=== PATIENT | male | born 1965 | race Caucasian/White ===

== ENCOUNTER 2018-06-02 00:57 | Inpatient (IN) | payer OTHER ==
[2018-06-02] MEDS ORDERED: NACL 0.9% 3 ML SYG IV (09:00)
[2018-06-02 10:10] LABS: ADD MAN DIFF? NO
[2018-06-02 10:14] LABS: BASOPHILS % 0.1 % (0.0-2.0); HEMATOCRIT 43.1 % (42.0-52.0); HEMOGLOBIN 13.8 g/dl (14.0-18.0); LYMPHOCYTES # 0.9 10^3/ul (0.8-2.9); LYMPHOCYTES % 9.2 % (15.0-51.0); MEAN CORPUSCULAR HEMOGLOBIN 27.7 pg (29.0-33.0); MEAN CORPUSCULAR VOLUME 86.5 fl (82.0-101.0); MEAN PLATELET VOLUME 11.2 fl (7.4-10.4); MONOCYTE # 0.4 10^3/ul (0.3-0.9); MONOCYTES % 3.6 % (0.0-11.0); NEUTROPHIL # 8.8 10^3/ul (1.6-7.5); NEUTROPHILS % 86.7 % (39.0-77.0); PLATELET COUNT 417 10^3/UL (140-415); RED BLOOD COUNT 4.98 10^6/ul (4.70-6.10); RED CELL DISTRIBUTION WIDTH 13.7 % (11.5-14.5)
[2018-06-02 10:14] LABS: WHITE BLOOD COUNT 10.2 10^3/ul (4.8-10.8)
[2018-06-02 10:24] LABS: HEMOGLOBIN A1C 5.3 % (0-5.9)
[2018-06-02 10:37] LABS: ALANINE AMINOTRANSFERASE 46 IU/L (13-69); ALBUMIN 4.2 g/dl (3.3-4.9); ALKALINE PHOSPHATASE 93 IU/L (42-121); ANION GAP 10 (5-13); ASPARTATE AMINO TRANSFERASE 36 IU/L (15-46); BILIRUBIN,INDIRECT 0.4 mg/dl (0-1.1); BILIRUBIN,TOTAL 0.4 mg/dl (0.2-1.3); BLOOD UREA NITROGEN 21 mg/dl (7-20); CALCIUM 9.7 mg/dl (8.4-10.2); CARBON DIOXIDE 25 mmol/L (21-31); CHLORIDE 101 mmol/L (97-110); CHOL/HDL RATIO 5.4 RATIO; CHOLESTEROL 148 mg/dl (100-200); CREATININE 0.58 mg/dl (0.61-1.24); Estimated GFR > 60 mL/min (>60); GLUCOSE 165 mg/dl (70-220); HDL CHOLESTEROL 27 mg/dl (28-71); LDL CHOLESTEROL,CALCULATED 102 mg/dl; MAGNESIUM 1.9 mg/dl (1.7-2.5); POTASSIUM 4.6 mmol/L (3.5-5.1); SODIUM 136 mmol/L (135-144); TRIGLYCERIDES 96 mg/dl (0-149)
[2018-06-02] MEDS ORDERED: DOCUSATE SODIUM 100 MG CAP PO (15:30)
[2018-06-02] MEDS: FAMOTIDINE 20 MG TAB PO (15:58)
[2018-06-02] MEDS ORDERED: DEXAMETHASONE 10 MG/ML 1 ML INJ IV (16:00)
[2018-06-02] MEDS: DEXAMETHASONE 4 MG/ML 1 ML INJ IV (16:01)
[2018-06-02] MEDS: ACETAMINOPHEN 325 MG TAB PO (20:29)
[2018-06-02] MEDS ORDERED: NITROGLYCERIN (SL) 0.4 MG TAB SL (21:00)
[2018-06-02 21:37] LABS: CREATINE KINASE 76 IU/L (23-200)
[2018-06-02 21:51] LABS: CK INDEX 2.5; CK-MB 1.93 ng/ml (0.0-2.4); TROPONIN-I < 0.012 ng/ml (0.000-0.120)
[2018-06-02] MEDS: DEXAMETHASONE 1 MG TAB PO (22:23)
[2018-06-03] MEDS: DEXAMETHASONE 1 MG TAB PO ×5 (05:39→23:13)
[2018-06-03 06:20] LABS: ADD MAN DIFF? NO
[2018-06-03 06:24] LABS: BASOPHILS % 0.1 % (0.0-2.0); HEMATOCRIT 40.4 % (42.0-52.0); HEMOGLOBIN 12.9 g/dl (14.0-18.0); LYMPHOCYTES # 1.4 10^3/ul (0.8-2.9); LYMPHOCYTES % 8.2 % (15.0-51.0); MEAN CORPUSCULAR HEMOGLOBIN 27.9 pg (29.0-33.0); MEAN CORPUSCULAR HGB CONC 31.9 g/dl (32.0-37.0); MEAN CORPUSCULAR VOLUME 87.3 fl (82.0-101.0); MEAN PLATELET VOLUME 11.1 fl (7.4-10.4); MONOCYTE # 1.3 10^3/ul (0.3-0.9); MONOCYTES % 7.4 % (0.0-11.0); NEUTROPHIL # 14.2 10^3/ul (1.6-7.5); NEUTROPHILS % 83.7 % (39.0-77.0); PLATELET COUNT 373 10^3/UL (140-415); RED BLOOD COUNT 4.63 10^6/ul (4.70-6.10); RED CELL DISTRIBUTION WIDTH 13.3 % (11.5-14.5)
[2018-06-03 06:40] LABS: HEMOGLOBIN A1C 5.5 % (0-5.9)
[2018-06-03 07:15] LABS: PHOSPHORUS 3.9 mg/dl (2.5-4.9)
[2018-06-03 07:15] LABS: LIPASE 38 U/L (23-300); MAGNESIUM 2.1 mg/dl (1.7-2.5)
[2018-06-03 07:16] LABS: ANION GAP 10 (5-13); BLOOD UREA NITROGEN 19 mg/dl (7-20); CALCIUM 9.7 mg/dl (8.4-10.2); CARBON DIOXIDE 27 mmol/L (21-31); CHLORIDE 97 mmol/L (97-110); CREATININE 0.57 mg/dl (0.61-1.24); Estimated GFR > 60 mL/min (>60); GLUCOSE 129 mg/dl (70-220); POTASSIUM 4.5 mmol/L (3.5-5.1); SODIUM 134 mmol/L (135-144)
[2018-06-03] MEDS: FAMOTIDINE 20 MG TAB PO (08:33)
[2018-06-03] MEDS: LEVETIRACETAM 1000 MG (PMX) 100 ML IVPB (16:51)
[2018-06-03] MEDS: LEVETIRACETAM 500 MG TAB PO (20:48)
[2018-06-03] MEDS: ALBUTEROL/IPRATROPIUM (NEB) 3 ML AMP HHN (23:22)
[2018-06-04] MEDS: DEXAMETHASONE 1 MG TAB PO ×3 (05:35→17:45)
[2018-06-04 05:51] LABS: PHOSPHORUS 3.3 mg/dl (2.5-4.9)
[2018-06-04 05:54] LABS: ANION GAP 6 (5-13); BLOOD UREA NITROGEN 16 mg/dl (7-20); CALCIUM 9.5 mg/dl (8.4-10.2); CARBON DIOXIDE 29 mmol/L (21-31); CHLORIDE 102 mmol/L (97-110); CREATININE 0.59 mg/dl (0.61-1.24); Estimated GFR > 60 mL/min (>60); GLUCOSE 121 mg/dl (70-220); POTASSIUM 4.4 mmol/L (3.5-5.1); SODIUM 137 mmol/L (135-144)
[2018-06-04] MEDS: ALBUTEROL/IPRATROPIUM (NEB) 3 ML AMP HHN ×3 (06:04→19:38)
[2018-06-04] MEDS: ACETAMINOPHEN 325 MG TAB PO ×2 (07:31→22:42)
[2018-06-04] MEDS: LEVETIRACETAM 500 MG TAB PO ×2 (09:21→21:24)
[2018-06-04] MEDS: FAMOTIDINE 20 MG TAB PO (09:21)
[2018-06-04 17:10] LABS: ALPHA FETOPROTEIN 2.12 IU/L (0.00-7.21)
[2018-06-05] MEDS: DEXAMETHASONE 1 MG TAB PO ×4 (00:10→18:12)
[2018-06-05] MEDS: HYDROCODONE/APAP (5/325) TAB PO ×5 (00:16→22:36)
[2018-06-05 07:56] LABS: ADD MAN DIFF? NO
[2018-06-05 08:05] LABS: WHITE BLOOD COUNT 15.6 10^3/ul (4.8-10.8)
[2018-06-05 08:05] LABS: BASOPHILS % 0.2 % (0.0-2.0); EOSINOPHILS % 0.2 % (0.0-7.0); HEMATOCRIT 40.2 % (42.0-52.0); HEMOGLOBIN 12.8 g/dl (14.0-18.0); LYMPHOCYTES # 1.7 10^3/ul (0.8-2.9); LYMPHOCYTES % 11.1 % (15.0-51.0); MEAN CORPUSCULAR HEMOGLOBIN 28.2 pg (29.0-33.0); MEAN CORPUSCULAR HGB CONC 31.8 g/dl (32.0-37.0); MEAN CORPUSCULAR VOLUME 88.5 fl (82.0-101.0); MEAN PLATELET VOLUME 11.2 fl (7.4-10.4); MONOCYTE # 1.2 10^3/ul (0.3-0.9); MONOCYTES % 7.7 % (0.0-11.0); NEUTROPHIL # 12.6 10^3/ul (1.6-7.5); NEUTROPHILS % 80.4 % (39.0-77.0); PLATELET COUNT 335 10^3/UL (140-415); RED BLOOD COUNT 4.54 10^6/ul (4.70-6.10); RED CELL DISTRIBUTION WIDTH 13.9 % (11.5-14.5)
[2018-06-05] MEDS: ALBUTEROL/IPRATROPIUM (NEB) 3 ML AMP HHN ×3 (08:10→22:11)
[2018-06-05 08:21] LABS: MAGNESIUM 2.1 mg/dl (1.7-2.5)
[2018-06-05 08:21] LABS: PHOSPHORUS 4.3 mg/dl (2.5-4.9)
[2018-06-05 08:25] LABS: ALANINE AMINOTRANSFERASE 167 IU/L (13-69); ALBUMIN/GLOBULIN RATIO 1.33; ALKALINE PHOSPHATASE 87 IU/L (42-121); ANION GAP 2 (5-13); ASPARTATE AMINO TRANSFERASE 60 IU/L (15-46); BILIRUBIN,INDIRECT 0.4 mg/dl (0-1.1); BILIRUBIN,TOTAL 0.4 mg/dl (0.2-1.3); BLOOD UREA NITROGEN 15 mg/dl (7-20); CALCIUM 9.6 mg/dl (8.4-10.2); CARBON DIOXIDE 31 mmol/L (21-31); CHLORIDE 103 mmol/L (97-110); CREATININE 0.59 mg/dl (0.61-1.24); Estimated GFR > 60 mL/min (>60); GLUCOSE 103 mg/dl (70-220); POTASSIUM 4.6 mmol/L (3.5-5.1); SODIUM 136 mmol/L (135-144)
[2018-06-05] MEDS: FAMOTIDINE 20 MG TAB PO (08:36)
[2018-06-05] MEDS: LEVETIRACETAM 500 MG TAB PO ×2 (08:36→20:30)
[2018-06-05 11:56] LABS: INR 1.03; PROTIME 13.6 Sec (11.9-14.9); PT RATIO 1.1
[2018-06-05 11:57] LABS: PARTIAL THROMBOPLASTIN TIME 29.7 Sec (23.0-35.0)
[2018-06-05 12:08] LABS: CARCINOEMBRYONIC ANTIGEN 10.5 ng/ml (0.0-5.0)
[2018-06-05] MEDS: IOHEXOL 14.3 MG(I)/ML (ADULT) BTL PO (12:29)
[2018-06-05] MEDS: SOD CHLORIDE 0.9% 100 ML (15:00)
[2018-06-05] MEDS: IOHEXOL 300MG/ML 30 ML BTL (15:00)
[2018-06-06] MEDS: DEXAMETHASONE 1 MG TAB PO ×5 (00:46→23:47)
[2018-06-06] MEDS: HYDROCODONE/APAP (10/325) TAB PO ×4 (02:43→23:47)
[2018-06-06] MEDS: ALBUTEROL/IPRATROPIUM (NEB) 3 ML AMP HHN ×4 (02:46→20:04)
[2018-06-06] MEDS: LEVETIRACETAM 500 MG TAB PO ×2 (08:04→20:43)
[2018-06-06] MEDS: FAMOTIDINE 20 MG TAB PO (08:04)
[2018-06-06] MEDS: ONDANSETRON 4 MG INJ IV ×3 (09:07→21:55)
[2018-06-06] MEDS: METHYLPREDNISOLONE 125 MG INJ IV (09:44)
[2018-06-06] MEDS: FUROSEMIDE 20 MG INJ IV (09:45)
[2018-06-06 19:19] LABS: TROPONIN-I < 0.012 ng/ml (0.000-0.120)
[2018-06-06] MEDS: FLUTICASONE 0.05% 16 GM NAS SPRAY NASAL (21:28)
[2018-06-06] MEDS ORDERED: LORAZEPAM 2 MG INJ (22:14)
[2018-06-06] MEDS: LORAZEPAM 2 MG INJ IV (23:01)
[2018-06-07 01:39] LABS: TROPONIN-I < 0.012 ng/ml (0.000-0.120)
[2018-06-07] MEDS: ALBUTEROL/IPRATROPIUM (NEB) 3 ML AMP HHN ×4 (02:46→19:58)
[2018-06-07] MEDS: DEXAMETHASONE 1 MG TAB PO ×3 (05:00→17:35)
[2018-06-07] MEDS: morphine SULFATE/PF (2 MG/2 ML) SYG IV (05:41)
[2018-06-07] MEDS ORDERED: FUROSEMIDE 20 MG INJ IV (06:00)
[2018-06-07 06:38] LABS: ADD MAN DIFF? NO
[2018-06-07 06:40] LABS: ABNORMAL IP MESSAGE 1; HEMATOCRIT 41.1 % (42.0-52.0); HEMOGLOBIN 13.3 g/dl (14.0-18.0); LYMPHOCYTES # 1.3 10^3/ul (0.8-2.9); LYMPHOCYTES % 6.1 % (15.0-51.0); MEAN CORPUSCULAR HEMOGLOBIN 28.6 pg (29.0-33.0); MEAN CORPUSCULAR HGB CONC 32.4 g/dl (32.0-37.0); MEAN CORPUSCULAR VOLUME 88.4 fl (82.0-101.0); MEAN PLATELET VOLUME 11.1 fl (7.4-10.4); MONOCYTE # 1.8 10^3/ul (0.3-0.9); MONOCYTES % 8.7 % (0.0-11.0); NEUTROPHIL # 17.5 10^3/ul (1.6-7.5); NEUTROPHILS % 84.6 % (39.0-77.0); PLATELET COUNT 423 10^3/UL (140-415); POSITIVE DIFF @See below; RED BLOOD COUNT 4.65 10^6/ul (4.70-6.10)
[2018-06-07 06:40] LABS: WHITE BLOOD COUNT 20.7 10^3/ul (4.8-10.8)
[2018-06-07 07:01] LABS: INR 1.04; PROTIME 13.7 Sec (11.9-14.9); PT RATIO 1.1
[2018-06-07 07:02] LABS: PARTIAL THROMBOPLASTIN TIME 30.9 Sec (23.0-35.0)
[2018-06-07 07:05] LABS: ANION GAP 12 (5-13); BLOOD UREA NITROGEN 25 mg/dl (7-20); CARBON DIOXIDE 27 mmol/L (21-31); CHLORIDE 95 mmol/L (97-110); CREATININE 0.73 mg/dl (0.61-1.24); Estimated GFR > 60 mL/min (>60); GLUCOSE 142 mg/dl (70-220); SODIUM 134 mmol/L (135-144)
[2018-06-07 07:07] LABS: MAGNESIUM 2.2 mg/dl (1.7-2.5)
[2018-06-07 07:07] LABS: PHOSPHORUS 5.7 mg/dl (2.5-4.9)
[2018-06-07] MEDS ORDERED: LIDOCAINE 1% (MDV) 20 ML INJ (08:32)
[2018-06-07] MEDS ORDERED: FENTAnyl 50 MCG/ML VIAL ×3 (08:39→10:17)
[2018-06-07] MEDS ORDERED: MIDAZOLAM 1 MG/ML 2 ML INJ (08:39)
[2018-06-07] MEDS: FAMOTIDINE 20 MG TAB PO (09:00)
[2018-06-07] MEDS: LEVETIRACETAM 500 MG TAB PO ×2 (09:00→20:03)
[2018-06-07] MEDS ORDERED: LABETALOL HCL 20MG INJ IV (09:30)
[2018-06-07] MEDS ORDERED: DIPHENHYDRAMINE 50 MG INJ IV (09:30)
[2018-06-07] MEDS ORDERED: hydrALAzine 20 MG INJ IV (09:30)
[2018-06-07] MEDS ORDERED: EPHEDrine SULFATE 50 MG/5 ML SYG IV (09:30)
[2018-06-07] MEDS ORDERED: HYDROmorphONE 1 MG/5 ML IV SYRINGE IV ×3 (09:30)
[2018-06-07] MEDS ORDERED: MEPERIDINE 25 MG INJ IV (09:30)
[2018-06-07] MEDS ORDERED: ONDANSETRON 4 MG INJ IV ×2 (09:30→11:00)
[2018-06-07] MEDS ORDERED: SOD CHLORIDE 0.9% 500 ML (09:40)
[2018-06-07] MEDS ORDERED: morphine 2 MG INJ IV (11:00)
[2018-06-07] MEDS ORDERED: OXYCODONE/ACETAMINOPHEN (5/325) TAB PO (11:00)
[2018-06-07] MEDS ORDERED: ACETAMINOPHEN 325 MG TAB PO (11:00)
[2018-06-07] MEDS ORDERED: AL HYDROX/MG HYDROX/SIMETH 30 ML CUP PO (11:00)
[2018-06-07 12:28] LABS: FLD MN% 54.3 %; FLD PMN% 45.7 %; FLD RBC 1702000 /uL; FLD WBC 7060 /cmm
[2018-06-07 12:41] LABS: FLD CLARITY BLOODY; FLD COLOR RED
[2018-06-07 12:41] LABS: FLD TYPE PERICARDIAL
[2018-06-07 12:55] LABS: TOTAL PROTEIN 5.7 g/dl (6.1-8.1)
[2018-06-07 13:04] LABS: FLUID GLUCOSE 41 mg/dl; FLUID TYPE PERICARDIAL FLUID
[2018-06-07 13:08] LABS: FLUID LD 3390 U/L; FLUID TYPE PERICARDIAL FLUID
[2018-06-07] MEDS: FLUTICASONE 0.05% 16 GM NAS SPRAY NASAL ×2 (14:00→20:03)
[2018-06-07] MEDS ORDERED: ZOLPIDEM 5 MG TAB PO (17:30)
[2018-06-07] MEDS: HYDROCODONE/APAP (10/325) TAB PO ×2 (17:35→21:57)
[2018-06-07] MEDS: LORAZEPAM 2 MG INJ IV (21:56)
[2018-06-08] MEDS: DEXAMETHASONE 1 MG TAB PO ×5 (00:01→23:13)
[2018-06-08 05:52] LABS: ADD MAN DIFF? NO
[2018-06-08 06:06] LABS: ABNORMAL IP MESSAGE 1; BASOPHILS % 0.2 % (0.0-2.0); EOSINOPHILS % 0.2 % (0.0-7.0); HEMATOCRIT 38.4 % (42.0-52.0); HEMOGLOBIN 12.6 g/dl (14.0-18.0); LYMPHOCYTES # 1.3 10^3/ul (0.8-2.9); MEAN CORPUSCULAR HEMOGLOBIN 28.5 pg (29.0-33.0); MEAN CORPUSCULAR HGB CONC 32.8 g/dl (32.0-37.0); MEAN CORPUSCULAR VOLUME 86.9 fl (82.0-101.0); MEAN PLATELET VOLUME 10.2 fl (7.4-10.4); MONOCYTE # 1.9 10^3/ul (0.3-0.9); NEUTROPHIL # 15.8 10^3/ul (1.6-7.5); NEUTROPHILS % 82.1 % (39.0-77.0); PLATELET COUNT 308 10^3/UL (140-415); POSITIVE DIFF @See below; RED BLOOD COUNT 4.42 10^6/ul (4.70-6.10); RED CELL DISTRIBUTION WIDTH 13.9 % (11.5-14.5)
[2018-06-08 06:06] LABS: WHITE BLOOD COUNT 19.2 10^3/ul (4.8-10.8)
[2018-06-08 06:42] LABS: PHOSPHORUS 3.9 mg/dl (2.5-4.9)
[2018-06-08 06:42] LABS: MAGNESIUM 1.9 mg/dl (1.7-2.5)
[2018-06-08 06:45] LABS: ANION GAP 4 (5-13); CALCIUM 8.9 mg/dl (8.4-10.2); CARBON DIOXIDE 31 mmol/L (21-31); CHLORIDE 96 mmol/L (97-110); CREATININE 0.66 mg/dl (0.61-1.24); Estimated GFR > 60 mL/min (>60); GLUCOSE 84 mg/dl (70-220); POTASSIUM 4.5 mmol/L (3.5-5.1); SODIUM 131 mmol/L (135-144)
[2018-06-08 07:04] LABS: BLOOD UREA NITROGEN 22 mg/dl (7-20)
[2018-06-08] MEDS: ALBUTEROL/IPRATROPIUM (NEB) 3 ML AMP HHN ×3 (08:20→19:28)
[2018-06-08] MEDS: LEVETIRACETAM 500 MG TAB PO (08:43)
[2018-06-08] MEDS: FAMOTIDINE 20 MG TAB PO (08:43)
[2018-06-08] MEDS: FLUTICASONE 0.05% 16 GM NAS SPRAY NASAL ×2 (08:43→20:13)
[2018-06-08] MEDS: HYDROCODONE/APAP (10/325) TAB PO (12:16)
[2018-06-08] MEDS: HYDROCORTISONE 25 MG SUPP PR (17:08)
[2018-06-08 17:24] LABS: OSMOLALITY 274 mOsm/kg (280-295)
[2018-06-08] MEDS: LEVETIRACETAM 1000 MG (PMX) 100 ML IVPB (18:39)
[2018-06-08] MEDS ORDERED: LEVETIRACETAM 500 MG (PMX) 100 ML IVPB (21:00)
[2018-06-08 22:54] LABS: SODIUM,URINE RANDOM 171 mmol/L (30-90)
[2018-06-08 23:02] LABS: OSMOLALITY,URINE 657 mOsm/kg (250-1200)
[2018-06-08] MEDS: LORAZEPAM 2 MG INJ IV (23:59)
[2018-06-09] MEDS: DEXAMETHASONE 1 MG TAB PO ×4 (05:39→23:22)
[2018-06-09 06:08] LABS: ADD MAN DIFF? NO
[2018-06-09 06:12] LABS: WHITE BLOOD COUNT 21.8 10^3/ul (4.8-10.8)
[2018-06-09 06:12] LABS: ABNORMAL IP MESSAGE 1; EOSINOPHILS % 0.1 % (0.0-7.0); HEMATOCRIT 39.9 % (42.0-52.0); HEMOGLOBIN 13.1 g/dl (14.0-18.0); LYMPHOCYTES # 1.1 10^3/ul (0.8-2.9); LYMPHOCYTES % 5.1 % (15.0-51.0); MEAN CORPUSCULAR HEMOGLOBIN 28.2 pg (29.0-33.0); MEAN CORPUSCULAR HGB CONC 32.8 g/dl (32.0-37.0); MEAN CORPUSCULAR VOLUME 85.8 fl (82.0-101.0); MEAN PLATELET VOLUME 10.7 fl (7.4-10.4); MONOCYTE # 2.2 10^3/ul (0.3-0.9); MONOCYTES % 9.9 % (0.0-11.0); NEUTROPHIL # 18.4 10^3/ul (1.6-7.5); NEUTROPHILS % 84.4 % (39.0-77.0); PLATELET COUNT 289 10^3/UL (140-415); POSITIVE DIFF @See below; RED BLOOD COUNT 4.65 10^6/ul (4.70-6.10); RED CELL DISTRIBUTION WIDTH 13.9 % (11.5-14.5)
[2018-06-09 06:35] LABS: PHOSPHORUS 3.5 mg/dl (2.5-4.9)
[2018-06-09 06:41] LABS: ANION GAP 2 (5-13); BLOOD UREA NITROGEN 12 mg/dl (7-20); CALCIUM 9.1 mg/dl (8.4-10.2); CARBON DIOXIDE 31 mmol/L (21-31); CHLORIDE 99 mmol/L (97-110); CREATININE 0.56 mg/dl (0.61-1.24); Estimated GFR > 60 mL/min (>60); GLUCOSE 105 mg/dl (70-220); POTASSIUM 4.3 mmol/L (3.5-5.1); SODIUM 132 mmol/L (135-144)
[2018-06-09] MEDS: ALBUTEROL/IPRATROPIUM (NEB) 3 ML AMP HHN ×3 (08:22→20:12)
[2018-06-09] MEDS ORDERED: HYDROCORTISONE 25 MG SUPP PR (09:30)
[2018-06-09] MEDS: LEVETIRACETAM IV 750 MG in DEXTROSE 5% 100 ML IV ×2 (09:45→21:38)
[2018-06-09] MEDS: FAMOTIDINE 20 MG TAB PO (09:45)
[2018-06-09] MEDS: FLUTICASONE 0.05% 16 GM NAS SPRAY NASAL ×2 (09:46→21:39)
[2018-06-09] MEDS: HYDROCODONE/APAP (10/325) TAB PO (19:46)
[2018-06-09] MEDS: DIPHENHYDRAMINE 50 MG CAP PO (23:01)
[2018-06-09] MEDS: DIAZEPAM 5 MG TAB PO (23:02)
[2018-06-09] MEDS: morphine 2 MG INJ IV (23:22)
[2018-06-10 05:21] LABS: ADD MAN DIFF? NO
[2018-06-10 05:22] LABS: WHITE BLOOD COUNT 20.4 10^3/ul (4.8-10.8)
[2018-06-10 05:22] LABS: ABNORMAL IP MESSAGE 1; BASOPHILS % 0.1 % (0.0-2.0); EOSINOPHILS # 0.1 10^3/ul (0.0-0.5); EOSINOPHILS % 0.5 % (0.0-7.0); HEMATOCRIT 41.8 % (42.0-52.0); LYMPHOCYTES # 1.1 10^3/ul (0.8-2.9); LYMPHOCYTES % 5.3 % (15.0-51.0); MEAN CORPUSCULAR HEMOGLOBIN 28.5 pg (29.0-33.0); MEAN CORPUSCULAR HGB CONC 33.5 g/dl (32.0-37.0); MEAN CORPUSCULAR VOLUME 85.1 fl (82.0-101.0); MEAN PLATELET VOLUME 10.2 fl (7.4-10.4); MONOCYTE # 2.1 10^3/ul (0.3-0.9); MONOCYTES % 10.2 % (0.0-11.0); NEUTROPHIL # 16.9 10^3/ul (1.6-7.5); NEUTROPHILS % 83.2 % (39.0-77.0); PLATELET COUNT 289 10^3/UL (140-415); POSITIVE DIFF @See below; RED BLOOD COUNT 4.91 10^6/ul (4.70-6.10); RED CELL DISTRIBUTION WIDTH 14.1 % (11.5-14.5)
[2018-06-10 05:57] LABS: PHOSPHORUS 3.9 mg/dl (2.5-4.9)
[2018-06-10 05:57] LABS: MAGNESIUM 1.9 mg/dl (1.7-2.5)
[2018-06-10 06:08] LABS: ANION GAP 7 (5-13); BLOOD UREA NITROGEN 15 mg/dl (7-20); CALCIUM 9.3 mg/dl (8.4-10.2); CARBON DIOXIDE 27 mmol/L (21-31); CHLORIDE 99 mmol/L (97-110); CREATININE 0.52 mg/dl (0.61-1.24); Estimated GFR > 60 mL/min (>60); GLUCOSE 106 mg/dl (70-220); POTASSIUM 4.2 mmol/L (3.5-5.1); SODIUM 133 mmol/L (135-144)
[2018-06-10] MEDS: DEXAMETHASONE 1 MG TAB PO ×4 (06:14→23:15)
[2018-06-10] MEDS: FAMOTIDINE 20 MG TAB PO (08:30)
[2018-06-10] MEDS: morphine 2 MG INJ IV ×2 (08:31→23:15)
[2018-06-10] MEDS: ALBUTEROL/IPRATROPIUM (NEB) 3 ML AMP HHN ×3 (08:39→19:43)
[2018-06-10] MEDS: FLUTICASONE 0.05% 16 GM NAS SPRAY NASAL ×2 (09:33→21:00)
[2018-06-10] MEDS: LEVETIRACETAM IV 750 MG in DEXTROSE 5% 100 ML IV ×2 (09:56→22:15)
[2018-06-11 06:00] LABS: ADD MAN DIFF? NO
[2018-06-11 06:08] LABS: WHITE BLOOD COUNT 20.2 10^3/ul (4.8-10.8)
[2018-06-11 06:08] LABS: ABNORMAL IP MESSAGE 1; BASOPHILS % 0.2 % (0.0-2.0); EOSINOPHILS # 0.1 10^3/ul (0.0-0.5); EOSINOPHILS % 0.7 % (0.0-7.0); HEMATOCRIT 44.4 % (42.0-52.0); HEMOGLOBIN 14.8 g/dl (14.0-18.0); LYMPHOCYTES # 1.4 10^3/ul (0.8-2.9); MEAN CORPUSCULAR HEMOGLOBIN 28.7 pg (29.0-33.0); MEAN CORPUSCULAR HGB CONC 33.3 g/dl (32.0-37.0); MEAN CORPUSCULAR VOLUME 86.2 fl (82.0-101.0); MEAN PLATELET VOLUME 10.2 fl (7.4-10.4); MONOCYTE # 1.6 10^3/ul (0.3-0.9); NEUTROPHIL # 16.7 10^3/ul (1.6-7.5); PLATELET COUNT 342 10^3/UL (140-415); POSITIVE DIFF @See below; RED BLOOD COUNT 5.15 10^6/ul (4.70-6.10); RED CELL DISTRIBUTION WIDTH 13.8 % (11.5-14.5)
[2018-06-11] MEDS: DEXAMETHASONE 1 MG TAB PO ×3 (06:27→17:24)
[2018-06-11 06:49] LABS: PHOSPHORUS 3.6 mg/dl (2.5-4.9)
[2018-06-11 06:49] LABS: MAGNESIUM 1.9 mg/dl (1.7-2.5)
[2018-06-11 07:07] LABS: ANION GAP 10 (5-13); BLOOD UREA NITROGEN 15 mg/dl (7-20); CALCIUM 9.8 mg/dl (8.4-10.2); CARBON DIOXIDE 25 mmol/L (21-31); CHLORIDE 99 mmol/L (97-110); CREATININE 0.48 mg/dl (0.61-1.24); Estimated GFR > 60 mL/min (>60); GLUCOSE 121 mg/dl (70-220); POTASSIUM 4.1 mmol/L (3.5-5.1); SODIUM 134 mmol/L (135-144)
[2018-06-11] MEDS: ALBUTEROL/IPRATROPIUM (NEB) 3 ML AMP HHN ×3 (08:31→20:23)
[2018-06-11] MEDS: FAMOTIDINE 20 MG TAB PO (08:47)
[2018-06-11] MEDS: FLUTICASONE 0.05% 16 GM NAS SPRAY NASAL ×2 (08:47→20:43)
[2018-06-11] MEDS: HYDROCODONE/APAP (10/325) TAB PO ×3 (08:48→22:36)
[2018-06-11] MEDS: LEVETIRACETAM IV 750 MG in DEXTROSE 5% 100 ML IV (09:45)
[2018-06-11] MEDS: IOHEXOL 300MG/ML 150 ML BTL (17:54)
[2018-06-11] MEDS: SOD CHLORIDE 0.9% 100 ML (17:54)
[2018-06-11] MEDS: LEVETIRACETAM 750 MG TAB PO (20:43)
[2018-06-12] MEDS: DEXAMETHASONE 1 MG TAB PO ×5 (00:25→23:29)
[2018-06-12] MEDS: morphine LIQ (10 MG/5 ML) CUP PO (00:26)
[2018-06-12 05:29] LABS: ADD MAN DIFF? NO
[2018-06-12 05:40] LABS: BASOPHILS % 0.1 % (0.0-2.0); EOSINOPHILS # 0.2 10^3/ul (0.0-0.5); EOSINOPHILS % 1.3 % (0.0-7.0); HEMATOCRIT 42.5 % (42.0-52.0); HEMOGLOBIN 14.3 g/dl (14.0-18.0); LYMPHOCYTES # 1.8 10^3/ul (0.8-2.9); LYMPHOCYTES % 9.7 % (15.0-51.0); MEAN CORPUSCULAR HEMOGLOBIN 28.5 pg (29.0-33.0); MEAN CORPUSCULAR HGB CONC 33.6 g/dl (32.0-37.0); MEAN CORPUSCULAR VOLUME 84.8 fl (82.0-101.0); MEAN PLATELET VOLUME 9.6 fl (7.4-10.4); MONOCYTE # 1.5 10^3/ul (0.3-0.9); NEUTROPHIL # 14.5 10^3/ul (1.6-7.5); NEUTROPHILS % 80.1 % (39.0-77.0); PLATELET COUNT 321 10^3/UL (140-415); RED BLOOD COUNT 5.01 10^6/ul (4.70-6.10); RED CELL DISTRIBUTION WIDTH 13.9 % (11.5-14.5)
[2018-06-12 05:40] LABS: WHITE BLOOD COUNT 18.1 10^3/ul (4.8-10.8)
[2018-06-12 05:54] LABS: INR 1.01; PARTIAL THROMBOPLASTIN TIME 28.5 Sec (23.0-35.0); PROTIME 13.4 Sec (11.9-14.9)
[2018-06-12 06:09] LABS: MAGNESIUM 1.8 mg/dl (1.7-2.5)
[2018-06-12 06:23] LABS: ALANINE AMINOTRANSFERASE 147 IU/L (13-69); ALBUMIN 3.6 g/dl (3.3-4.9); ALBUMIN/GLOBULIN RATIO 1.12; ALKALINE PHOSPHATASE 103 IU/L (42-121); ANION GAP 5 (5-13); ASPARTATE AMINO TRANSFERASE 54 IU/L (15-46); BILIRUBIN,INDIRECT 0.7 mg/dl (0-1.1); BILIRUBIN,TOTAL 0.7 mg/dl (0.2-1.3); BLOOD UREA NITROGEN 13 mg/dl (7-20); CALCIUM 9.6 mg/dl (8.4-10.2); CARBON DIOXIDE 28 mmol/L (21-31); CHLORIDE 101 mmol/L (97-110); CREATININE 0.45 mg/dl (0.61-1.24); Estimated GFR > 60 mL/min (>60); GLUCOSE 107 mg/dl (70-220); POTASSIUM 4.3 mmol/L (3.5-5.1); SODIUM 134 mmol/L (135-144); TOTAL PROTEIN 6.8 g/dl (6.1-8.1)
[2018-06-12 06:55] LABS: COLLAGEN/EPI 91 Secs. (51-198)
[2018-06-12] MEDS: LEVETIRACETAM 750 MG TAB PO ×2 (08:23→20:33)
[2018-06-12] MEDS: FAMOTIDINE 20 MG TAB PO (08:23)
[2018-06-12] MEDS: FLUTICASONE 0.05% 16 GM NAS SPRAY NASAL ×2 (08:25→20:34)
[2018-06-12] MEDS: ALBUTEROL/IPRATROPIUM (NEB) 3 ML AMP HHN (09:16)
[2018-06-13] MEDS: morphine LIQ (10 MG/5 ML) CUP PO ×2 (01:23→05:27)
[2018-06-13] MEDS: DEXAMETHASONE 1 MG TAB PO ×3 (05:22→17:31)
[2018-06-13] MEDS: FAMOTIDINE 20 MG TAB PO (09:15)
[2018-06-13] MEDS: FLUTICASONE 0.05% 16 GM NAS SPRAY NASAL (09:15)
[2018-06-13] MEDS: LEVETIRACETAM 750 MG TAB PO (09:23)
[2018-06-13] MEDS: ACETAMINOPHEN 325 MG TAB PO (10:12)
[2018-06-13] MEDS: LEVETIRACETAM 500 MG (PMX) 100 ML IVPB (15:08)
[2018-06-13] MEDS: HYDROCODONE/APAP (10/325) TAB PO (17:30)
[2018-06-13] MEDS ORDERED: LEVETIRACETAM 500 MG TAB PO (21:00)
== END 2018-06-13 18:55 | disposition home or self-care (01) | DRG 314 ==
LOC: 6WM 00:57
PROC: 0W9D3ZZ Drainage of Pericardial Cavity, Percutaneous Approach (ICD-10-PCS; principal; 2018-06-07 08:50)
DX: I31.3 Pericardial effusion (noninflammatory) (principal); G93.6 Cerebral edema; C34.90 Malignant neoplasm of unspecified part of unspecified bronchus or lung; C79.31 Secondary malignant neoplasm of brain; C78.1 Secondary malignant neoplasm of mediastinum; C79.51 Secondary malignant neoplasm of bone; J91.0 Malignant pleural effusion; K86.2 Cyst of pancreas; E87.1 Hypo-osmolality and hyponatremia; R04.2 Hemoptysis; G40.009 Localization-related (focal) (partial) idiopathic epilepsy and epileptic syndromes with seizures of localized onset, not intractable, without status epilepticus; R13.10 Dysphagia, unspecified; I31.4 Cardiac tamponade; D64.9 Anemia, unspecified; F17.200 Nicotine dependence, unspecified, uncomplicated; J43.9 Emphysema, unspecified; Z80.1 Family history of malignant neoplasm of trachea, bronchus and lung
CPT/HCPCS: 33010; 70450; 70470; 71045; 71260; 72125; 72128; 74177; 80048; 80053; 80061; 82105; 82378; 82533; 82550; 82553; 82945; 83036; 83615; 83690; 83735; 83930; 83935; 84100; 84155; 84300; 84443; 84484; 85025; 85576; 85610; 85730; 86301; 87070; 87102; 87116; 88104; 88305; 88313; 88341; 88342; 89051; 92526; 92610; 93005; 93306; 93308; 94640; 95819